=== PATIENT | male | born 1990 | race Caucasian/White ===

== ENCOUNTER 2019-11-26 02:53 | Emergency (ER) | payer OTHER ==
[~2019-11-26] VITALS: Ht 182.9 cm; Wt 96.5 kg
[2019-11-26 04:08] LABS: INFLUENZA A AMPLIFICATION NEGATIVE (NEGATIVE); INFLUENZA B AMPLIFICATION NEGATIVE (NEGATIVE)
[2019-11-26] MEDS ORDERED: KETOROLAC 60 MG/2 ML VIAL (J1885) IM ONE (05:30)
[2019-11-26] MEDS ORDERED: KETO10TAB PO (05:35)
[2019-11-26 06:01] VITALS: BP 120/70
--- NOTE | 2019-11-26 06:44 | ECGEPIP ---
[facility] - ED Test Date: 2019-11-26 Pat Name: David Martin Department: Room: - Gender: Male [employer] Agent: YESSI : 1990 Requested By: JAIME SEGOVIA Order Number: [id number] Reading MD: Lakeshia Cortes Measurements Intervals [place] Rate: 74 P: -20 [place]: 161 QRS: 74 QRSD: 91 T: 11 QT: 353 QTc: 393 Interpretive Statements SINUS RHYTHM EARLY REPOLARIZATION NO PRIOR ECG FOR COMPARISON Electronically Signed on 11-26-2019 6:44:08 EST by Lakeshia Cortes
--- NOTE | 2019-11-26 07:51 | REP ---
Clinical: Acute chest pain . Comparison: None . Technique: PA and lateral. Findings: The mediastinum and cardiac silhouette are normal. The lung cortes are clear and without acute consolidation, effusion, or pneumothorax. The skeletal structures are intact and normal. Impression: 1. No acute cardiopulmonary process. Electronically Signed by Odin Us MD 11/26/2019 07:42 A
== END 2019-11-26 06:02 | disposition home or self-care (01) ==
LOC: M ED 02:53
DX: R07.1 Chest pain on breathing (principal)
CPT/HCPCS: 71046; 87502; 93005; 96372; 99284; J1885